=== PATIENT | female | born 1940 | race Caucasian/White ===

== ENCOUNTER 2019-03-27 20:48 | Emergency (ER) | payer OTHER ==
[~2019-03-27] VITALS: Ht 154.9 cm; Wt 77.1 kg
[2019-03-27] MEDS ORDERED: OMEPRAZOLE10 MG (21:03)
[2019-03-27] MEDS ORDERED: AMLODIPINE-OLM1 EAC2 (21:03)
[2019-03-27] MEDS ORDERED: SINGULAIR10 MG (21:04)
[2019-03-27] MEDS ORDERED: ATORVASTATIN CA10 MG (21:04)
[2019-03-27] MEDS ORDERED: CALCIUM500 M2 (21:04)
[2019-03-27] MEDS ORDERED: CELEBREX50 MG (21:04)
[2019-03-27] MEDS ORDERED: CHILDREN'S5 MG/5 M1 (21:04)
[2019-03-27] MEDS ORDERED: VITAMIN D2400 UNIT (21:06)
== END 2019-03-27 22:01 | disposition home or self-care (01) ==
LOC: ER 20:48
DX: M54.5 Low back pain (principal)